=== PATIENT | female | born 1980 | race Caucasian/White ===

== ENCOUNTER 2018-04-20 23:02 | Emergency (ER) | payer SELFPAY ==
[2018-04-20] MEDS ORDERED: PROMETHAZINE 25 MG TABLET ONE (23:42)
[2018-04-20] MEDS ORDERED: ALBUTEROL 2.5 MG/3 ML NEB SOL ONE (23:42)
[2018-04-20] MEDS ORDERED: DEXAMETHASONE 4 MG TAB ONE (23:42)
--- NOTE | 2018-04-20 23:58 | ER ---
Nurse's Notes [facility] Name: Marianne Gonzales Age: 37 yrs Sex: Female : 1980 Arrival Date: 04/20/2018 Time: 23:04 Bed 17 Private MD: Diagnosis: Acute upper respiratory infection, unspecified;Asthma Presentation: 04/20 23:21 Presenting complaint: Patient states: "I have been coughing and having a sore throat, jd3 as well as body aches for 2 days now. I also have been throwing up a lot and can't hold anything down.". Transition of care: patient was not received from another setting of care. Onset of symptoms was April 19, 2018. Risk Assessment: Do you want to hurt yourself or someone else? Patient reports no desire to harm self or others. Initial Sepsis Screen: Does the patient meet any 2 criteria? No. Patient's initial sepsis screen is negative. Does the patient have a suspected source of infection? No. Patient's initial sepsis screen is negative. Care prior to arrival: None. 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 - Social history:: Smoking status: Patient uses tobacco products, smokes one-half pack cigarettes per day. - Ebola Screening: : Patient negative for fever greater than or equal to 101.5 degrees Fahrenheit, and additional compatible Ebola Virus Disease symptoms. Screenin:31 Abuse screen: Denies threats or abuse. Nutritional screening: No deficits noted. jd3 Tuberculosis screening: No symptoms or risk factors identified. Fall Risk Ambulatory Aid- None/Bed Rest/Nurse Assist (0 pts). Gait- Normal/Bed Rest/Wheelchair (0 pts) Mental Status- Oriented to own ability (0 pts). Total Rosen Fall Scale indicates No Risk (0-24 pts). Assessment: 23:29 General: Appears in no apparent distress. uncomfortable, Behavior is calm, cooperative, jd3 appropriate for age. Pain: Complains of pain in general body aches Pain currently is 1 out of 10 on a pain scale. Quality of pain is described as aching. Neuro: Level of Consciousness is awake, alert, obeys commands, Oriented to person, place, time, situation. Cardiovascular: Capillary refill < 3 seconds Patient's skin is warm and dry. Respiratory: Airway is patent Respiratory effort is even, unlabored, Respiratory pattern is regular, symmetrical, Breath sounds are clear bilaterally. GI: Abdomen is round non-distended, Bowel sounds present X 4 quads. Abd is soft and non tender X 4 quads. Reports nausea, vomiting. : No signs and/or symptoms were reported regarding the genitourinary system. EENT: No signs and/or symptoms were reported regarding the EENT system. Derm: Skin is intact, Skin is dry, Skin is normal, Skin temperature is warm. Musculoskeletal: Circulation, motion, and sensation intact. Range of motion: intact in all extremities. 04/21 00:11 Reassessment: Patient appears in no apparent distress at this time. Patient and/or jd3 family updated on plan of care and expected duration. Pain level reassessed. Patient is alert, oriented x 3, equal unlabored respirations, skin warm/dry/pink. Patient states feeling better. Vital Signs: 04/20 23:27 BP 110 / 64; Pulse 76; Resp 18 S; Temp 99.1(O); Pulse Ox 100% on R/A; Weight 51.26 kg jd3 (R); Height 5 ft. 1 in. (154.94 cm) (R); Pain 0/10; 04/21 00:10 BP 111 / 68; Pulse 80; Resp 19 S; Pulse Ox 100% on R/A; Pain 0/10; jd3 04/20 23:27 Body Mass Index 21.35 (51.26 kg, 154.94 cm) [facility] ED Course: 04/20 23:04 Patient arrived in ED. am2 23:04 Nancy Kay [facility]-C [facility]. snw 23:04 Mateo Tobar MD is Attending Physician. snw 23:21 Gianfranco Tam, RN is Primary Nurse. jd3 23:22 Triage completed. jd3 23:29 Arm band placed on. jd3 23:31 Patient has correct armband on for positive identification. Bed in low position. Call jd3 light in reach. Side rails up X 1. Adult w/ patient. 04/21 00:10 No provider procedures requiring assistance completed. Patient did not have IV access jd3 during this emergency room visit. Administered Medications: 04/20 23:05 Drug: Albuterol 2.5 mg Route: Inhalation; jd3 23:20 Drug: Albuterol 2.5 mg Route: Inhalation; jd3 23:42 Drug: Phenergan 25 mg Route: PO; jd3 04/21 00:12 Follow up: Response: No adverse reaction jd3 04/20 23:42 Drug: Albuterol 2.5 mg Route: Inhalation; jd3 04/21 00:11 Follow up: Response: No adverse reaction jd3 00:13 Follow up: Response: No adverse reaction jd3 00:13 Follow up: Response: No adverse reaction jd3 04/20 23:42 Drug: Decadron 8 mg Route: PO; jd3 04/21 00:11 Follow up: Response: No adverse reaction jd3 Outcome: 04/20 23:57 Discharge ordered by . lisa 04/21 00:10 Discharged to home ambulatory, with family. jd3 Condition: stable Discharge instructions given to patient, family, Instructed on discharge instructions, follow up and referral plans. medication usage, Demonstrated understanding of instructions, follow-up care, medications, Prescriptions given X 3. 00:13 Patient left the ED. jd3 Signatures: Nancy Kay, NATASHAC HOMICIDE SQUAD CAPTAIN-CsnAlmita Lala am2 Gianfranco Tam, RN RN jd3
--- NOTE | 2018-04-20 23:58 | EDPHYS ---
Physician Documentation [facility] Name: Marianne Gonzales Age: 37 yrs Sex: Female : 1980 Arrival Date: 04/20/2018 Time: 23:04 Bed 17 Private MD: ED Physician Mateo Tobar HPI: 04/20 23:27 This 37 yrs old Female presents to ER via Ambulatory with complaints of snw Nausea/Vomiting, Cough, Congestion. 23:28 The patient or guardian reports cough, described as moderate. Onset: The snw symptoms/episode began/occurred suddenly, 3 day(s) ago, and became worse and became persistent. Associated signs and symptoms: Pertinent positives: nausea, rhinorrhea, sore throat, vomiting, Pertinent negatives: fever. Severity of symptoms: At their worst the symptoms were moderate in the emergency department the symptoms are unchanged. The patient has experienced similar episodes in the past. It is unknown whether or not the patient has recently seen a physician. hx of asthma. 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 - Social history:: Smoking status: Patient uses tobacco products, smokes one-half pack cigarettes per day. - Ebola Screening: : Patient negative for fever greater than or equal to 101.5 degrees Fahrenheit, and additional compatible Ebola Virus Disease symptoms. ROS: 23:26 Constitutional: Negative for fever, chills, and weight loss, Eyes: Negative for injury, snw pain, redness, and discharge, ENT: Negative for injury and discharge, + sore throat Neck: Negative for injury, pain, and swelling, Cardiovascular: Negative for chest pain, palpitations, and edema, Respiratory: Negative for shortness of breath, wheezing, and pleuritic chest pain, + cough Abdomen/GI: Negative for abdominal pain, nausea, diarrhea, and constipation, + vomiting phlegm this evening Back: Negative for injury and pain, : Negative for injury, bleeding, discharge, and swelling, MS/Extremity: Negative for injury and deformity, Skin: Negative for injury, rash, and discoloration, Neuro: Negative for headache, weakness, numbness, tingling, and seizure. Exam: 23:23 Head/Face: Normocephalic, atraumatic. Eyes: Pupils equal round and reactive to light, snw extra-ocular motions intact. Lids and lashes normal. Conjunctiva and sclera are non-icteric and not injected. Cornea within normal limits. Periorbital areas with no swelling, redness, or edema. 23:23 Neck: Trachea midline, no thyromegaly or masses palpated, and no cervical lymphadenopathy. Supple, full range of motion without nuchal rigidity, or vertebral point tenderness. No Meningismus. Chest/axilla: Normal chest wall appearance and motion. Nontender with no deformity. No lesions are appreciated. Cardiovascular: Regular rate and rhythm with a normal S1 and S2. No gallops, murmurs, or rubs. Normal PMI, no JVD. No pulse deficits. 23:23 Abdomen/GI: Soft, non-tender, with normal bowel sounds. No distension or tympany. No guarding or rebound. No evidence of tenderness throughout. Back: No spinal tenderness. No costovertebral tenderness. Full range of motion. Skin: Warm, dry with normal turgor. Normal color with no rashes, no lesions, and no evidence of cellulitis. MS/ Extremity: Pulses equal, no cyanosis. Neurovascular intact. Full, normal range of motion. Neuro: Awake and alert, GCS 15, oriented to person, place, time, and situation. Cranial nerves II-XII grossly intact. Motor strength 5/5 in all extremities. Sensory grossly intact. Cerebellar exam normal. Normal gait. 23:23 Constitutional: The patient appears alert, awake, uncomfortable. 23:23 ENT: External ear(s): are unremarkable, TM's: are normal, Nose: is normal, Mouth: Oral mucosa: pink and intact, Posterior pharynx: erythema, that is mild, Voice: is normal. 23:23 Respiratory: the patient does not display signs of respiratory distress, Respirations: shallow respirations, Breath sounds: wheezing: that is mild, is heard diffusely, bronchitic cough. Vital Signs: 23:27 BP 110 / 64; Pulse 76; Resp 18 S; Temp 99.1(O); Pulse Ox 100% on R/A; Weight 51.26 kg jd3 (R); Height 5 ft. 1 in. (154.94 cm) (R); Pain 0/10; 04/21 00:10 BP 111 / 68; Pulse 80; Resp 19 S; Pulse Ox 100% on R/A; Pain 0/10; jd3 04/20 23:27 Body Mass Index 21.35 (51.26 kg, 154.94 cm) jd3 MDM: 04/20 23:17 Patient medically screened. snw 23:58 Data reviewed: vital signs, nurses notes. Data interpreted: Pulse oximetry: on room air snw is 100 %. Interpretation: normal. Counseling: I had a detailed discussion with the patient and/or guardian regarding: the historical points, exam findings, and any diagnostic results supporting the discharge/admit diagnosis, the need for outpatient follow up, to return to the emergency department if symptoms worsen or persist or if there are any questions or concerns that arise at home. Special discussion: Based on the history and exam findings, there is no indication for further emergent testing or inpatient evaluation. I discussed with the patient/guardian the need to see the primary care provider for further evaluation of the symptoms. Administered Medications: 23:05 Drug: Albuterol 2.5 mg Route: Inhalation; jd3 23:20 Drug: Albuterol 2.5 mg Route: Inhalation; jd3 23:42 Drug: Phenergan 25 mg Route: PO; jd3 04/21 00:12 Follow up: Response: No adverse reaction jd3 04/20 23:42 Drug: Albuterol 2.5 mg Route: Inhalation; jd3 04/21 00:11 Follow up: Response: No adverse reaction jd3 00:13 Follow up: Response: No adverse reaction jd3 00:13 Follow up: Response: No adverse reaction jd3 04/20 23:42 Drug: Decadron 8 mg Route: PO; jd3 04/21 00:11 Follow up: Response: No adverse reaction jd3 Disposition: 00:40 Co-signature as Attending Physician, Mateo Tobar MD. ma2 Disposition: 04/20/18 23:57 Discharged to Home. Impression: Acute upper respiratory infection, unspecified, Asthma. - Condition is Stable. - Discharge Instructions: Asthma, Adult, Upper Respiratory Infection, Adult, Cool Mist Vaporizer, Asthma Attack Prevention, Adult, Rehydration, Adult. - Prescriptions for Zyrtec 10 mg Oral Tablet - take 1 tablet by ORAL route once daily As needed; 20 tablet. Albuterol Sulfate 90 mcg/actuation - inhale 1-2 puff by INHALATION route every 4-6 hours; 1 Inhaler. promethazine 25 mg Oral Tablet - take 1 tablet by ORAL route every 6 hours As needed; 10 tablet. - Work release form, Medication Reconciliation Form, Thank You Letter, Antibiotic Education, Prescription Opioid Use form. - Follow up: Private Physician; When: 2 - 3 days; Reason: Recheck today's complaints, Continuance of care, Re-evaluation by your physician. Follow up: Emergency Department; When: As needed; Reason: Worsening of condition. Signatures: Nancy Kay FNP-C ROD MACHINE OPERATOR-Gianfranco Stratton RN RN jd3 Mateo Tobar MD MD ma2 Corrections: (The following items were deleted from the chart) 00:13 04/20 23:57 04/20/2018 23:57 Discharged to Home. Impression: Acute upper respiratory jd3 infection, unspecified; Asthma. Condition is Stable. Discharge Instructions: Asthma, Adult, Upper Respiratory Infection, Adult, Cool Mist Vaporizer, Asthma Attack Prevention, Adult, Rehydration, Adult. Prescriptions for Zyrtec 10 mg Oral Tablet - take 1 tablet by ORAL route once daily As needed; 20 tablet, Albuterol Sulfate 90 mcg/actuation - inhale 1-2 puff by INHALATION route every 4-6 hours; 1 Inhaler, promethazine 25 mg Oral Tablet - take 1 tablet by ORAL route every 6 hours As needed; 10 tablet. and Forms are Work release form, Medication Reconciliation Form, Thank You Letter, Antibiotic Education, Prescription Opioid Use. Follow up: Private Physician; When: 2 - 3 days; Reason: Recheck today's complaints, Continuance of care, Re-evaluation by your physician. Follow up: Emergency Department; When: As needed; Reason: Worsening of condition. snw
== END 2018-04-21 00:13 | disposition home or self-care (01) ==
LOC: ER 23:02
DX: J06.9 Acute upper respiratory infection, unspecified (principal); J45.909 Unspecified asthma, uncomplicated; Z88.6 Allergy status to analgesic agent
CPT/HCPCS: 99284

== ENCOUNTER 2018-08-01 18:56 | Emergency (ER) | payer SELFPAY ==
[2018-08-01] MEDS ORDERED: ALBUTEROL 2.5 MG/3 ML NEB SOL ONE (21:07)
[2018-08-01] MEDS ORDERED: IPRATROPIUM BROM 0.5MG/2.5ML ONE (21:07)
[2018-08-01] MEDS ORDERED: HYDROCODONE/CHLORPHEN 5 ML/OSYR ONE (21:08)
--- NOTE | 2018-08-01 22:08 | EDPHYS ---
Physician Documentation [facility] Name: Marianne Gonzales Age: 37 yrs Sex: Female : 1980 Arrival Date: 08/01/2018 Time: 19:00 Bed 15 Private MD: ED Physician Darren Richardson HPI: 08/01 20:45 This 37 yrs old Female presents to ER via Ambulatory with complaints of cp Cough, Headache, Breathing Difficulty. 20:45 The patient or guardian reports cough, that is intermittent, with productive sputum. cp Onset: The symptoms/episode began/occurred 5 day(s) ago. Associated signs and symptoms: Pertinent positives: sore throat, headache, Pertinent negatives: diarrhea, fever, vomiting. 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 - Social history:: Smoking status: Patient/guardian denies using tobacco. - Ebola Screening: : Patient negative for fever greater than or equal to 101.5 degrees Fahrenheit, and additional compatible Ebola Virus Disease symptoms Patient denies exposure to infectious person Patient denies travel to an Ebola-affected area in the 21 days before illness onset No symptoms or risks identified at this time. ROS: 21:00 Constitutional: Positive for body aches, Negative for fever, poor PO intake. cp 21:00 Eyes: Negative for injury, pain, redness, and discharge. cp 21:00 ENT: Positive for sore throat, Negative for drainage from ear(s), ear pain, difficulty swallowing, difficulty handling secretions. 21:00 Cardiovascular: Negative for chest pain, edema, palpitations. 21:00 Respiratory: Positive for shortness of breath, Negative for cough, wheezing. 21:00 Abdomen/GI: Negative for abdominal pain, nausea, vomiting, and diarrhea. 21:00 Skin: Negative for cellulitis, rash. 21:00 Neuro: Positive for headache, Negative for altered mental status, dizziness, weakness. 21:00 All other systems are negative. Exam: 21:05 Constitutional: The patient appears in no acute distress, alert, awake, cp non-diaphoretic, non-toxic, well developed, well nourished. 21:05 Head/Face: Normocephalic, atraumatic. cp 21:05 Eyes: Periorbital structures: appear normal, Conjunctiva: normal, no exudate, no injection, Lids and lashes: appear normal, bilaterally. 21:05 ENT: External ear(s): are unremarkable, Ear canal(s): are normal, clear, TM's: bulging, is not appreciated, bilaterally, dullness, bilaterally, erythema, is not appreciated, bilaterally, Nose: nasal drainage, that is minimal, Mouth: Lips: moist, Oral mucosa: moist, Posterior pharynx: Airway: no evidence of obstruction, patent, Tonsils: with erythema, no enlargement, no exudate, erythema, that is mild, exudate, is not appreciated, Voice: is normal. 21:05 Neck: ROM/movement: is normal, is supple, without pain, no range of motions limitations, no meningismus, no nuchal rigidity, Lymph nodes: no appreciated lymphadenopathy. 21:05 Chest/axilla: Inspection: normal, Palpation: is normal, no crepitus, no tenderness. 21:05 Cardiovascular: Rate: tachycardic, Rhythm: regular, Edema: is not appreciated, JVD: is not appreciated. 21:05 Respiratory: the patient does not display signs of respiratory distress, Respirations: normal, no use of accessory muscles, no retractions, no splinting, no tachypnea, labored breathing, is not present, Breath sounds: decreased breath sounds, are not appreciated, stridor, is not appreciated, + upper airway congestion. wheezing: that is mild, is heard diffusely. 21:05 Abdomen/GI: Inspection: abdomen appears normal, Palpation: abdomen is soft and non-tender, in all quadrants. 21:05 Back: pain, is absent, ROM is normal. 21:05 Skin: cellulitis, is not appreciated, no rash present. 21:05 Neuro: Orientation: to person, place \T\ time. Mentation: is normal, Cerebellar function: is grossly normal, Motor: moves all fours, strength is normal, Sensation: is normal. Vital Signs: 19:20 BP 116 / 65; Pulse 108; Resp 20; Temp 98.6; Pulse Ox 97% on R/A; Weight 57.15 kg; aj Height 5 ft. 1 in. (154.94 cm); 20:35 BP 118 / 77; Pulse 106; Resp 18 S; Pulse Ox 96% on R/A; cc3 21:40 BP 121 / 73; Pulse 101; Resp 20 S; Pulse Ox 96% on R/A; cc3 22:18 BP 112 / 72; Pulse 98; Resp 18 S; Pulse Ox 96% on R/A; cc3 19:20 Body Mass Index 23.81 (57.15 kg, 154.94 cm) aj MDM: 20:37 Patient medically screened. cp 21:00 Differential Diagnosis: Bronchitis Influenza Sinusitis Pharyngitis Otitis Media Asthma cp Exacerbation Viral Syndrome Pneumonia. 22:05 Data reviewed: vital signs, nurses notes, lab test result(s), radiologic studies, plain cp films. 22:05 Test interpretation: by ED physician or midlevel provider: plain radiologic studies. cp Counseling: I had a detailed discussion with the patient and/or guardian regarding: the historical points, exam findings, and any diagnostic results supporting the discharge/admit diagnosis, lab results, radiology results, to return to the emergency department if symptoms worsen or persist or if there are any questions or concerns that arise at home. Response to treatment: the patient's symptoms have markedly improved after treatment, and as a result, I will discharge patient. 08/01 19:19 Order name: Flu 08/01 19:19 Order name: Strep 08/01 20:01 Order name: Throat Culture [facility] 08/01 20:41 Order name: XRAY Chest Pa And Lat (2 Views) cp Administered Medications: 21:00 Drug: Tussionex Pennkinetic ER 5 ml Route: PO; cc3 21:00 Follow up: Response: No adverse reaction cc3 21:01 Drug: Albuterol 2.5 mg Route: Inhalation; cc3 21:01 Drug: AtroVENT Aerosol 0.5 mg Route: Inhalation; cc3 Disposition: 08/02 21:25 Co-signature as Attending Physician, Darren Richardson MD I agree with the assessment and wa plan of care. Disposition: 08/01/18 22:07 Discharged to Home. Impression: Acute bronchitis. - Condition is Stable. - Discharge Instructions: Acute Bronchitis, Adult. - Prescriptions for Tessalon Perles 100 mg Oral Capsule - take 1 capsule by ORAL route every 8 hours As needed; 15 capsule. Prednisone 20 mg Oral Tablet - take 2 tablet by ORAL route once daily for 5 days; 10 tablet. Albuterol Sulfate 90 mcg/actuation - inhale 1-2 puff by INHALATION route every 4-6 hours; 1 Inhaler. - Medication Reconciliation Form, Thank You Letter, Antibiotic Education, Prescription Opioid Use form. - Follow up: Private Physician; When: 2 - 3 days; Reason: Recheck today's complaints. - Problem is new. - Symptoms have improved. Signatures: Dispatcher [employer] Almita Del Valle RN RN Devaughn Ventura PA PA cp Appiah, William, MD MD wa Cordel, Charlene cc3 Corrections: (The following items were deleted from the chart) 08/01 22:27 22:07 08/01/2018 22:07 Discharged to Home. Impression: Acute bronchitis. Condition is cc3 Stable. Forms are Medication Reconciliation Form, Thank You Letter, Antibiotic Education, Prescription Opioid Use. Follow up: Private Physician; When: 2 - 3 days; Reason: Recheck today's complaints. Problem is new. Symptoms have improved. cp
--- NOTE | 2018-08-01 22:08 | ER ---
Nurse's Notes [facility] Name: Marianne Gonzales Age: 37 yrs Sex: Female : 1980 Arrival Date: 08/01/2018 Time: 19:00 Bed 15 Private MD: Diagnosis: Acute bronchitis Presentation: 08/01 19:18 Presenting complaint: Patient states: Flu like symptoms for 5 days. Transition of care: aj patient was not received from another setting of care. Onset of symptoms was July 28, 2018. Risk Assessment: Do you want to hurt yourself or someone else? Patient reports no desire to harm self or others. Initial Sepsis Screen: Does the patient meet any 2 criteria? No. Patient's initial sepsis screen is negative. Does the patient have a suspected source of infection? No. Patient's initial sepsis screen is negative. Care prior to arrival: None. 19:18 Method Of Arrival: Ambulatory 19:18 Acuity: HANNA 4 aj Triage Assessment: 19:20 Headache History: The patient has had previous headaches. General: Appears in no aj apparent distress. comfortable, Behavior is calm, cooperative, appropriate for age. Pain: Complains of pain in face and scalp. Neuro: Level of Consciousness is awake, alert, obeys commands, Oriented to person, place, time, situation, Appropriate for age Reports headache. Respiratory: Airway is patent Respiratory effort is even, unlabored, Respiratory pattern is regular, symmetrical. Derm: Skin is intact, is healthy with good turgor, Skin is pink, warm \T\ dry. normal. 20:31 Pain: Pain currently is 5 out of 10 on a pain scale. Pain began 5 days Also complains cc3 of no other associated symptoms. 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 - Social history:: Smoking status: Patient/guardian denies using tobacco. - Ebola Screening: : Patient negative for fever greater than or equal to 101.5 degrees Fahrenheit, and additional compatible Ebola Virus Disease symptoms Patient denies exposure to infectious person Patient denies travel to an Ebola-affected area in the 21 days before illness onset No symptoms or risks identified at this time. Screenin:31 Abuse screen: Denies threats or abuse. Denies injuries from another. Nutritional cc3 screening: No deficits noted. Tuberculosis screening: No symptoms or risk factors identified. Fall Risk Ambulatory Aid- None/Bed Rest/Nurse Assist (0 pts). Gait- Normal/Bed Rest/Wheelchair (0 pts) Mental Status- Oriented to own ability (0 pts). Assessment: 20:31 Reassessment: Patient appears in no apparent distress at this time. Patient and/or cc3 family updated on plan of care and expected duration. Pain level reassessed. Patient is alert, oriented x 3, equal unlabored respirations, skin warm/dry/pink. Pain: Complains of pain in scalp and face. 21:18 Reassessment: Patient appears in no apparent distress at this time. Patient and/or cc3 family updated on plan of care and expected duration. Pain level reassessed. Patient is alert, oriented x 3, equal unlabored respirations, skin warm/dry/pink. 22:20 Reassessment: Patient appears in no apparent distress at this time. Patient and/or cc3 family updated on plan of care and expected duration. Pain level reassessed. Patient is alert, oriented x 3, equal unlabored respirations, skin warm/dry/pink. PA Page discharged the patient with prescription given. No IV cannula in situ. Patient left ER vitally stable and ambulatory with her family. Vital Signs: 19:20 BP 116 / 65; Pulse 108; Resp 20; Temp 98.6; Pulse Ox 97% on R/A; Weight 57.15 kg; aj Height 5 ft. 1 in. (154.94 cm); 20:35 BP 118 / 77; Pulse 106; Resp 18 S; Pulse Ox 96% on R/A; cc3 21:40 BP 121 / 73; Pulse 101; Resp 20 S; Pulse Ox 96% on R/A; cc3 22:18 BP 112 / 72; Pulse 98; Resp 18 S; Pulse Ox 96% on R/A; cc3 19:20 Body Mass Index 23.81 (57.15 kg, 154.94 cm) ED Course: 19:00 Patient arrived in ED. mr 19:18 Triage completed. aj 19:20 Arm band placed on left wrist. Patient placed in waiting room, Patient notified of wait aj time. Labs ordered per protocol. 20:31 Sally Ellison is Primary Nurse. cc3 20:31 Patient has correct armband on for positive identification. Bed in low position. Call cc3 light in reach. Side rails up X 1. Pulse ox on. NIBP on. 20:37 Devaughn Soares PA is PHCP. cp 20:37 Darren Richardson MD is Attending Physician. cp 21:41 XRAY Chest Pa And Lat (2 Views) In Process Unspecified. EDMS 22:20 No provider procedures requiring assistance completed. Patient did not have IV access cc3 during this emergency room visit. Administered Medications: 21:00 Drug: Tussionex Pennkinetic ER 5 ml Route: PO; cc3 21:00 Follow up: Response: No adverse reaction cc3 21:01 Drug: Albuterol 2.5 mg Route: Inhalation; cc3 21:01 Drug: AtroVENT Aerosol 0.5 mg Route: Inhalation; cc3 Outcome: 22:07 Discharge ordered by . cp 22:20 Discharged to home ambulatory, with family. cc3 22:20 Condition: stable 22:20 Discharge instructions given to patient, family, Instructed on discharge instructions, follow up and referral plans. medication usage, Demonstrated understanding of instructions, follow-up care, medications, Prescriptions given X 3. 22:27 Patient left the ED. cc3 Signatures: Dispatcher [employer] EDMS Almita Patel RN RN aj Rivera, Mary mr Devaughn Soares PA PA cp Cordel, Charlene cc3
--- NOTE | 2018-08-01 22:35 | RAD REPORT ---
EXAM DESCRIPTION: Verito Carlson (2 Views)08/01/2018 9:47 pm CLINICAL HISTORY: Cough COMPARISON: None FINDINGS: The lungs appear clear of acute infiltrate. The heart is normal size IMPRESSION: No acute abnormalities displayed
== END 2018-08-01 22:27 | disposition home or self-care (01) ==
LOC: ER 18:56
DX: J20.9 Acute bronchitis, unspecified (principal); F41.9 Anxiety disorder, unspecified; F31.9 Bipolar disorder, unspecified; F32.9 Major depressive disorder, single episode, unspecified; Z88.6 Allergy status to analgesic agent
CPT/HCPCS: 71046; 87070; 87081; 87804; 99284

== ENCOUNTER 2018-11-20 22:41 | Emergency (ER) | payer SELFPAY ==
[2018-11-20] MEDS ORDERED: ACETAMINOPHEN 325 MG TABLET ONE (23:27)
[2018-11-20] MEDS ORDERED: IBUPROFEN 400 MG TAB ONE (23:27)
--- NOTE | 2018-11-21 00:22 | EDPHYS ---
Physician Documentation [facility] Name: Marianne Gonzales Age: 38 yrs Sex: Female : 1980 Arrival Date: 11/20/2018 Time: 22:51 Bed 19 Private MD: ED Physician Devaughn Aldana HPI: 11/20 23:15 This 38 yrs old Female presents to ER via Ambulatory with complaints of cp Finger Injury - slammed with door. 23:15 The patient or guardian reports a contusion, injury, pain, swelling, tenderness. The cp complaints affect the right hand. Context: resulted from a crush injury, sliding door. Onset: The symptoms/episode began/occurred just prior to arrival. Associated signs and symptoms: Pertinent negatives: cyanosis distally, numbness distally. 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 - Social history:: Smoking status: Patient uses tobacco products, smokes one-half pack cigarettes per day. - Ebola Screening: : Patient negative for fever greater than or equal to 101.5 degrees Fahrenheit, and additional compatible Ebola Virus Disease symptoms. ROS: 23:20 Constitutional: Negative for body aches, chills, fever, poor PO intake. cp 23:20 Neck: Negative for pain with movement, pain at rest. cp 23:20 Cardiovascular: Negative for chest pain. 23:20 Respiratory: Negative for cough, shortness of breath, wheezing. 23:20 Abdomen/GI: Negative for abdominal pain, nausea, vomiting, diarrhea. 23:20 Back: Negative for pain at rest, pain with movement. 23:20 MS/extremity: Positive for injury or acute deformity, pain, swelling, tenderness, of the right hand, Negative for paresthesias. 23:20 All other systems are negative. Exam: 23:28 Constitutional: The patient appears in no acute distress, alert, awake, non-toxic, well cp developed, well nourished, uncomfortable. 23:28 Head/Face: Normocephalic, atraumatic. cp 23:28 Musculoskeletal/extremity: Extremities: grossly normal except: noted in the dorsum right hand: contusion, ecchymosis, pain, swelling, tenderness, There is no evidence of deformity, ROM: limited active range of motion due to pain, in the right hand, Perfusion: the extremity is normally perfused throughout, Sensation intact. 23:28 Skin: no rash present. Vital Signs: 23:09 BP 100 / 61; Pulse 72; Resp 18 S; Temp 98.6(O); Pulse Ox 100% on R/A; Weight 63.5 kg jd3 (R); Height 5 ft. 1 in. (154.94 cm) (R); Pain 10/10; 11/21 00:15 BP 95 / 60; Pulse 70; Resp 17; Pulse Ox 98% on R/A; rr5 00:40 BP 104 / 68; Pulse 75; Resp 17; Pulse Ox 99% ; rr5 11/20 23:09 Body Mass Index 26.45 (63.50 kg, 154.94 cm) jd3 Procedures: 01:00 Splinting: Splint applied to right hand using memo wrap, Orthoglass splint, volar type. cp applied by tech. Examined by me, post splint application: neurovascular intact, Patient tolerated well. MDM: 11/20 23:08 Patient medically screened. cp 11/21 00:00 Differential diagnosis: dislocation, open fracture, closed fracture, contusion. cp 00:19 ED course: Xray right hand negative for acute fracture. cp 00:20 Data reviewed: vital signs, nurses notes, radiologic studies, plain films. cp 00:20 Test interpretation: by ED physician or midlevel provider: plain radiologic studies. cp Counseling: I had a detailed discussion with the patient and/or guardian regarding: the historical points, exam findings, and any diagnostic results supporting the discharge/admit diagnosis, radiology results, to return to the emergency department if symptoms worsen or persist or if there are any questions or concerns that arise at home. Response to treatment: the patient's symptoms have markedly improved after treatment, and as a result, I will discharge patient. 11/20 23:11 Order name: XRAY Hand RIGHT 3 View cp 11/21 00:20 Order name: Splint: volar splint and memo wrap; Complete Time: 00:40 cp Administered Medications: 11/20 23:17 Drug: Ibuprofen 800 mg Route: PO; rr5 11/21 01:00 Follow up: Response: No adverse reaction rr5 11/20 23:17 Drug: Tylenol 650 mg Route: PO; rr5 11/21 01:00 Follow up: Response: No adverse reaction rr5 Disposition: 01:15 Chart complete. cp Disposition: 11/21/18 00:21 Discharged to Home. Impression: Crushing injury of hand - right. - Condition is Stable. - Discharge Instructions: Crush Injury of the Hand. - Prescriptions for Ibuprofen 800 mg Oral Tablet - take 1 tablet by ORAL route every 8 hours As needed take with food; 30 tablet. - Medication Reconciliation Form, Thank You Letter, Antibiotic Education, Prescription Opioid Use form. - Follow up: Private Physician; When: 5 - 6 days; Reason: Recheck today's complaints. - Problem is new. - Symptoms have improved. Addendum: 11/24/2018 11:09 Co-signature as Attending Physician, Devaughn Aldana MD I agree with the assessment and c rosen plan of care. Signatures: Dispatcher [employer] EDMS Devaughn Aldana MD MD cha Page, Corey, PA PA cp Gianfranco Tam, RN RN jd3 Db Bonilla RN RN rr5 Corrections: (The following items were deleted from the chart) 11/21 01:09 00:21 11/21/2018 00:21 Discharged to Home. Impression: Crushing injury of hand - right. rr5 Condition is Stable. Forms are Medication Reconciliation Form, Thank You Letter, Antibiotic Education, Prescription Opioid Use. Follow up: Private Physician; When: 5 - 6 days; Reason: Recheck today's complaints. Problem is new. Symptoms have improved. cp
--- NOTE | 2018-11-21 00:22 | ER ---
Nurse's Notes [facility] Name: Marianne Gonzales Age: 38 yrs Sex: Female : 1980 Arrival Date: 11/20/2018 Time: 22:51 Bed 19 Private MD: Diagnosis: Crushing injury of hand-right Presentation: 11/20 23:08 Presenting complaint: Patient states: "a sliding glass door closed on my fingers on my jd3 right hand.'. Transition of care: patient was not received from another setting of care. Onset of symptoms was November 20, 2018. Risk Assessment: Do you want to hurt yourself or someone else? Patient reports no desire to harm self or others. Initial Sepsis Screen: Does the patient meet any 2 criteria? No. Patient's initial sepsis screen is negative. Does the patient have a suspected source of infection? No. Patient's initial sepsis screen is negative. Care prior to arrival: None. 23:08 Method Of Arrival: Ambulatory j 23:08 Acuity: HANNA 4 jd3 Triage Assessment: 11/21 00:00 Injury Description: Bruise sustained to right hand swelling right hand. 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 - Social history:: Smoking status: Patient uses tobacco products, smokes one-half pack cigarettes per day. - Ebola Screening: : Patient negative for fever greater than or equal to 101.5 degrees Fahrenheit, and additional compatible Ebola Virus Disease symptoms. Screenin:23 Abuse screen: Denies threats or abuse. Denies injuries from another. Nutritional rr5 screening: No deficits noted. Tuberculosis screening: No symptoms or risk factors identified. Fall Risk None identified. Total Rosen Fall Scale indicates No Risk (0-24 pts). Assessment: 23:20 General: Appears in no apparent distress. uncomfortable, Behavior is calm, cooperative, rr5 appropriate for age. Pain: Complains of pain in right hand Pain does not radiate. Pain currently is 10 out of 10 on a pain scale. Quality of pain is described as aching, Pain began suddenly, Is intermittent. Neuro: Level of Consciousness is awake, alert, obeys commands, Oriented to person, place, time, situation, Appropriate for age. Cardiovascular: Capillary refill < 3 seconds Patient's skin is warm and dry. Respiratory: Airway is patent Respiratory effort is even, unlabored, Respiratory pattern is regular, symmetrical. GI: No signs and/or symptoms were reported involving the gastrointestinal system. : No signs and/or symptoms were reported regarding the genitourinary system. EENT: No signs and/or symptoms were reported regarding the EENT system. Derm: Skin is intact, Skin temperature is warm. Musculoskeletal: Capillary refill < 3 seconds, Swelling present in right hand Reports pain in right hand Pain is 10 out of 10 on a pain scale. 11/21 00:20 Reassessment: Patient appears in no apparent distress at this time. No changes from rr5 previously documented assessment. Patient is alert, oriented x 3, equal unlabored respirations, skin warm/dry/pink. awaiting for xray result. 00:41 Reassessment: Patient appears in no apparent distress at this time. Patient is alert, rr5 oriented x 3, equal unlabored respirations, skin warm/dry/pink. discharge instruction given and explained without complaints made. Patient states symptoms have improved. 01:10 Reassessment: volar splint with lenny wrap checked by ED provider and discharge. rr5 Vital Signs: 11/20 23:09 BP 100 / 61; Pulse 72; Resp 18 S; Temp 98.6(O); Pulse Ox 100% on R/A; Weight 63.5 kg jd3 (R); Height 5 ft. 1 in. (154.94 cm) (R); Pain 05/06; 11/21 00:15 BP 95 / 60; Pulse 70; Resp 17; Pulse Ox 98% on R/A; rr5 00:40 BP 104 / 68; Pulse 75; Resp 17; Pulse Ox 99% ; rr5 11/20 23:09 Body Mass Index 26.45 (63.50 kg, 154.94 cm) jd3 ED Course: 11/20 22:51 Patient arrived in ED. am2 23:08 Devaughn Soares PA is PHCP. cp 23:08 Devaughn Aldana MD is Attending Physician. cp 23:09 Triage completed. jd3 23:10 Arm band placed on. jd3 23:11 Db Bonilla, ALEX is Primary Nurse. rr5 23:30 Patient has correct armband on for positive identification. Bed in low position. Call rr5 light in reach. Pulse ox on. NIBP on. 11/21 00:41 Lenny wrap to right hand volar splint. rr5 00:48 No provider procedures requiring assistance completed. Patient did not have IV access rr5 during this emergency room visit. 01:46 XRAY Hand RIGHT 3 View In Process Unspecified. EDMS Administered Medications: 11/20 23:17 Drug: Ibuprofen 800 mg Route: PO; rr5 11/21 01:00 Follow up: Response: No adverse reaction rr5 11/20 23:17 Drug: Tylenol 650 mg Route: PO; rr5 11/21 01:00 Follow up: Response: No adverse reaction rr5 Outcome: 00:21 Discharge ordered by MD. cp 00:48 Discharged to home ambulatory. rr5 00:48 Condition: stable 00:48 Discharge instructions given to patient, Instructed on discharge instructions, follow up and referral plans. medication usage, Demonstrated understanding of instructions, follow-up care, Prescriptions given X 1. 01:09 Patient left the ED. rr5 Signatures: Dispatcher [employer] EDMS Devaughn Soares PA PA cp Almita Roberts am2 Gianfranco Tam RN RN jDb Neil, ALEX RN rr5
--- NOTE | 2018-11-21 10:07 | RAD REPORT ---
EXAM DESCRIPTION: RAD - Hand Right 3 View - 11/21/2018 1:46 am CLINICAL HISTORY: Right hand pain status post injury FINDINGS: No fracture or dislocation is seen.
== END 2018-11-21 01:09 | disposition home or self-care (01) ==
LOC: ER 22:41
PROC: 2W3CX1Z Immobilization of Right Lower Arm using Splint (ICD-10-PCS; principal; 2018-11-20)
DX: S67.21XA Crushing injury of right hand, initial encounter (principal); W23.0XXA Caught, crushed, jammed, or pinched between moving objects, initial encounter; F41.9 Anxiety disorder, unspecified; J45.909 Unspecified asthma, uncomplicated; F31.9 Bipolar disorder, unspecified; F32.9 Major depressive disorder, single episode, unspecified; Z86.73 Personal history of transient ischemic attack (TIA), and cerebral infarction without residual deficits; Z88.6 Allergy status to analgesic agent; F17.210 Nicotine dependence, cigarettes, uncomplicated
CPT/HCPCS: 99284